=== PATIENT | female | born 1945 ===

== ENCOUNTER 2016-12-16 10:48 | Emergency (ER) | payer MEDICARE, OTHER ==
[2016-12-16] MEDS ORDERED: Sodium Chloride 0.9% Inh Soln (3mL) UD INH ONE (12:50)
[2016-12-16 12:58] LABS: BASO % 0.5 % (0.0-2.0); EOS # 0.2 K/uL (0.0-0.7); EOS % 1.7 % (0.0-4.0); HEMATOCRIT 37.7 % (34.0-47.0); LYMPH # 2.4 K/uL (1.0-4.3); LYMPH % 22.3 % (20.0-40.0); MEAN CELL VOLUME 83.2 fL (81.0-99.0); MEAN CORPUSCULAR HEMOGLOBIN 27.5 pg (27.0-31.0); MEAN PLATELET VOLUME 10.3 fL (7.2-11.7); MONO # 0.8 K/uL (0.0-0.8); MONO % 7.1 % (0.0-10.0); RED CELL DISTRIBUTION WIDTH 15.7 % (11.5-14.5); WHITE BLOOD COUNT 10.6 K/uL (4.8-10.8)
--- NOTE | 2016-12-16 13:09 | RAD ---
HISTORY: SOB COMPARISON: No prior. TECHNIQUE: Chest PA and lateral FINDINGS: LUNGS: Mild increased vascularity suggesting underlying mild pulmonary edema/ CHF. Clinic correlation recommended. PLEURA: No significant pleural effusion identified. No pneumothorax apparent. CARDIOVASCULAR: Sternotomy wires and CABG clips Heart size within range of normal. OSSEOUS STRUCTURES: Minor multilevel degenerative spondylosis of the thoracic spine VISUALIZED UPPER ABDOMEN: Unremarkable. OTHER FINDINGS: None. IMPRESSION: Findings suggest mild central pulmonary vascular congestion
[2016-12-16 13:10] LABS: BLOOD UREA NITROGEN 13 mg/dL (7-17); CARBON DIOXIDE 26 mmol/L (22-30); CHLORIDE 101 mmol/L (98-107); GFR AFRICAN-AMERICAN > 60; GLUCOSE,RANDOM 192 mg/dL (65-105); POTASSIUM 3.9 mmol/L (3.6-5.2); SODIUM 141 mmol/L (132-148)
--- NOTE | 2016-12-16 13:20 | C.PDOC ---
History Of Present Illness 71 y/o female, with past medical history of asthma, diabetes, thyroid disease, presents to ED for evaluation of dry cough, and shortness of breath since last night. Pt denies any fever, chills, chest pain, extremity pain/swelling, or any other associated symptoms at this time. Time Seen by Provider: 12/16/16 12:21 Chief Complaint (Nursing): Shortness Of Breath History Per: Patient History/Exam Limitations: no limitations Onset/Duration Of Symptoms: Days (1) Current Symptoms Are (Timing): Still Present Current Respiratory Medications: See Home Med List Associated Symptoms: denies: Fever, Chills, Sweating, Chest Pain, Bloody Cough, Heart Racing, Leg/Calf Pain, Ankle/Leg Swelling, Dizziness, Light-headedness, Anxiety, Tingling In Hands Or Face, Musle Spasms In Hands Or Feet Recent travel outside of the [place]: No Additional History Per: Patient Past Medical History Reviewed: Historical Data, Nursing Documentation, Vital Signs Vital Signs: Last Vital Signs Temp 98.5 F 12/16/16 16:00 Pulse 96 H 12/16/16 16:00 Resp 18 12/16/16 16:00 BP 174/83 H 12/16/16 16:00 Pulse Ox 99 12/16/16 16:19 - Medical History PMH: Asthma, HTN Family History: States: No Known Family Hx - Social History Hx Alcohol Use: No Hx Substance Use: No - Immunization History Hx Tetanus Toxoid Vaccination: No Hx Influenza Vaccination: Yes Hx Pneumococcal Vaccination: Yes Review Of Systems Constitutional: Negative for: Fever, Chills Cardiovascular: Negative for: Chest Pain, Palpitations, Edema, Light Headedness Respiratory: Positive for: Cough, Shortness of Breath. Negative for: Hemoptysis , Sputum, Wheezing Gastrointestinal: Negative for: Nausea, Vomiting, Abdominal Pain Musculoskeletal: Negative for: Neck Pain, Back Pain Skin: Negative for: Rash, Bruising Neurological: Negative for: Weakness, Numbness, Headache, Dizziness Physical Exam - Physical Exam Additional Physical Exam Comments: Constitutional: No acute distress. Head: Normocephalic. Atraumatic. Eyes: PERRL. EOMI ENT: Moist mucous membranes. Neck: Supple. Cardiovascular: Regular rate and rhythm. No murmur. Chest: No tenderness. Respiratory: coarse bilateral bs with phlegmy sounding cough. No wheezing, rhonchi, or rales. Speaking in full sentences. GI: Soft. Nontender. Nondistended. Normoactive bowel sounds. Back: No CVA tenderness. Musculoskeletal: No swelling of extremities. No calf tenderness. Skin: No rash. Neurologic: Alert, no gross focal deficit. ED Course And Treatment - Laboratory Results Result Diagrams: 12/16/16 12:53 12/16/16 12:53 ECG: Interpreted By Me, Viewed By Me ECG Rhythm: Sinus Rhythm Rate From EC (bpm) O2 Sat by Pulse Oximetry: 99 (on RA) Pulse Ox Interpretation: Normal Medical Decision Making Medical Decision Making: CXR, blood work ordered and reviewed. Pt was given nebulizer treatment. 400 pm pt feeling well, no cp, no sob, labs neg for trop and bnp, cxr with mild pvc, pt able to sleep with normal # pillows and usual exercise tolerance. pt feels well, no wheezing. will d/c home, with pmd f/u tomorrow. Disposition Counseled Patient/Family Regarding: Studies Performed, Diagnosis, Need For Followup, Rx Given - Disposition Referrals: Jason Holcomb MD, PhD [Staff Provider] - Disposition: HOME/ ROUTINE Disposition Time: 16:12 Condition: STABLE Additional Instructions: Seguimiento con long pmd maana. [place] todos los medicamentos segn lo prescrito. Vuelva al ER para cualquier empeoramiento de los sntomas, dificultad para respirar o cualquier otro sntoma relacionado. Prescriptions: Albuterol HFA [Ventolin HFA 90 mcg/actuation (8 g)] 2 puff IH Q6 #1 inhaler Azithromycin [Zithromax] 250 mg PO DAILY #6 tab Lancets [Onetouch Lancets] 1 each MC TID #1 100 Montelukast Sodium [Singulair] 10 mg PO DAILY #30 tablet Instructions: Asthma (ED), Upper Respiratory Infection (ED) Forms: Gen Discharge Inst Occitan, [facility] (Occitan) Print Language: GUINEAN - Clinical Impression Clinical Impression: Asthma, Upper respiratory infection - PA / [employer] / Resident Statement MD/DO has reviewed & agrees with the documentation as recorded. - Scribe Statement The provider has reviewed the documentation as recorded by the Mirnaibelisa Feng All medical record entries made by the Lisa were at my direction and personally dictated by me. I have reviewed the chart and agree that the record accurately reflects my personal performance of the history, physical exam, medical decision making, and the department course for this patient. I have also personally directed, reviewed, and agree with the discharge instructions and disposition.
[2016-12-16] MEDS ORDERED: Sodium Chloride 0.9% 1,000 ML ONE (14:10)
[2016-12-16 16:01] VITALS: BP 174/83; PULSE 96; RESP 18; TEMP 98.5
[2016-12-16 16:13] VITALS: O2SAT 99
--- NOTE | 2016-12-19 10:23 | CARD ---
APPROVED REPORT EKG Measurement Heart [id number] <Conclusion> Normal sinus rhythm Possible Left atrial enlargement Prolonged QT Abnormal ECG
== END 2016-12-16 16:26 | disposition home or self-care (01) ==
LOC: C.ER 10:48
DX: J45.909 Unspecified asthma, uncomplicated (principal); J06.9 Acute upper respiratory infection, unspecified